=== PATIENT | female | born 1950 | race Caucasian/White ===

== ENCOUNTER 2017-12-05 18:34 | Inpatient (IN) | payer MEDICARE, MEDICAID ==
[~2017-12-05] VITALS: Ht 152.4 cm; Wt 40.0 kg
[~2017-12-05 18:34] MED LIST: CLOP75TA15 PO; DULO60CA64 PO; FLO110IN INH; HYDR-569 PO; LISI10TA4 PO; OXYB10TA4 PO; PANT-47 PO; PHEN100C4 PO; POLY17PO10 PO; [UNRECOGNIZED DRUG - CODE] PO
[2017-12-05] MEDS ORDERED: normal saline 1000ML IV soln IVB ONE (18:45)
[2017-12-05 19:05] LABS: BASOPHILS % (AUTO) 0.2 % (0-1); EOSINOPHILS % (AUTO) 0.2 % (0-6); HEMATOCRIT 23.4 % (35.0-45.0); HEMOGLOBIN 7.9 g/dl (12.0-16.0); LYMPHOCYTES # (AUTO) 1.5 X10'3 (1.1-4.8); LYMPHOCYTES % (AUTO) 9.4 % (21-51); MEAN CORPUSCULAR HEMOGLOBIN 32.9 PG (27.0-31.0); MEAN CORPUSCULAR HGB CONC 33.9 % (33.0-36.5); MEAN CORPUSCULAR VOLUME 97.2 FL (78-98); MEAN PLATELET VOLUME 7.4 FL (7.4-10.4); MONOCYTES # (AUTO) 1.2 X10'3 (0-0.9); MONOCYTES % (AUTO) 7.6 % (2-12); NEUTROPHILS # (AUTO) 12.8 X10'3 (1.8-7.7); NEUTROPHILS % (AUTO) 82.6 % (42-75); PLATELET COUNT 382 X10'3 (140-440); WHITE BLOOD COUNT 15.5 X10'3 (4.5-11.0)
[2017-12-05 19:32] LABS: ALANINE AMINOTRANSFERASE 26 U/L (12-78); ALBUMIN/GLOBULIN RATIO 0.4 (1.1-1.5); ANION GAP 14 (8-16); ASPARTATE AMINO TRANSFERASE 43 U/L (10-37); BILIRUBIN,TOTAL 0.2 MG/DL (0.1-1.0); BLOOD UREA NITROGEN 45 MG/DL (7-18); BUN/CREATININE RATIO 23.1 (6.6-38.0); CALCIUM 8.9 MG/DL (8.5-10.1); CHLORIDE 104 MMOL/L (99-107); CREATININE 1.95 MG/DL (0.40-0.90); MAGNESIUM 1.9 MG/DL (1.5-2.4); POTASSIUM 4.2 MMOL/L (3.5-5.1); SODIUM 141 MMOL/L (135-145); TOTAL CARBON DIOXIDE 23.3 MMOL/L (24-32); TOTAL PROTEIN 6.8 G/DL (6.4-8.2); eGFR 26 ML/MIN
[2017-12-05 19:39] LABS: GLUCOSE 125 MG/DL (70-104)
[2017-12-05 19:40] LABS: ALKALINE PHOSPHATASE 114 IU/L (46-116)
[2017-12-05] MEDS ORDERED: MELO-102 PO (19:46)
[2017-12-05 21:04] LABS: CLARITY,URINE SLIGHTLY CLOUDY (Clear); COLOR,URINE YELLOW (Yellow); GLUCOSE, URINE NEGATIVE (Neg); KETONES,URINE TRACE mg/dl (Neg); LEUKOCYTE ESTERASE ,URINE NEGATIVE (Neg); NITRITES, URINE NEGATIVE (Neg); OCCULT BLOOD,URINE LARGE (Neg); PH,URINE 5.5 (4.8-8.0); PROTEIN,URINE 30 mg/dl (Neg); UROBILINOGEN,URINE 0.2 E.U/dL (0.2-1.0)
[2017-12-05] MEDS ORDERED: methylPREDNISolone sod succ 125mg/2ml vial IV ONE (21:05)
[2017-12-05 21:06] LABS: UA COLLECTION TYPE STRAIGHT CATH
[2017-12-05 21:10] LABS: BACTERIA,URINE FEW /HPF (Neg); SQUAMOUS EPITHELIAL CELL,UR MANY /LPF (FEW); WBC,URINE 0-4 /HPF (0-4)
[2017-12-05 21:11] LABS: URIC ACID CRYSTALS 1+ /HPF (NEGATIVE)
[2017-12-05 21:12] LABS: MUCUS STRANDS FEW /LPF (Neg)
[2017-12-05] MEDS ORDERED: morphine 4 MG/ML inj SYRINge IV PRN ×2 (21:35)
[2017-12-05] MEDS ORDERED: HYDROcodone/acetaminophen 5mg/325mg tablet PO PRN (21:35)
[2017-12-05] MEDS ORDERED: mag hydrox/Alum hydrox/simeth 30ml oral suspension PO PRN (21:35)
[2017-12-05] MEDS ORDERED: magnesium hydroxide 30ml (MOM) UD suspension PO PRN (21:35)
[2017-12-05] MEDS ORDERED: metoclopramide 5 mg/ml inj IV PRN (21:35)
[2017-12-05] MEDS ORDERED: diphenhydrAMINE 25mg capsule PO PRN (21:35)
[2017-12-05] MEDS ORDERED: ondansetron/PF 4mg/2ml inj IV PRN (21:35)
[2017-12-05] MEDS ORDERED: HYDROmorphone inj. 0.5 MG/0.5 ML DISP.SYRIN IV PRN ×2 (21:35)
[2017-12-05] MEDS ORDERED: diphenhydrAMINE 50 mg/ml inj IV PRN (21:35)
[2017-12-05] MEDS ORDERED: bisacodyl 10mg suppository rectal RC PRN (21:35)
[2017-12-05] MEDS ORDERED: acetaminophen 650mg rectal suppository RC PRN (21:35)
[2017-12-05 21:39] LABS: LIPASE 162 U/L (73-393); PHENYTOIN (DILANTIN) 6.3 UG/ML (10.0-20.0); PHOSPHORUS 3.5 MG/DL (2.3-4.5)
[2017-12-05 22:04] LABS: HEMOGLOBIN A1C 5.9 % (4.5-6.2)
[2017-12-05 22:11] LABS: ABG BASE EXCESS -4.3 mmol/L (-2.0-3.0); ABG HCO3 20.5 mmol/L (22.0-26.0); ABG OXYGEN SATURATION 95.7 % (95-98); ABG PCO2 (T) 35.5 mmHg (32.0-45.0); ABG PH (T) 7.377 (7.350-7.450); ABG PO2 (T) 89.9 mmHg (83-108); FCOHb 2.5 % (0.5-1.5); FMetHb 0.3 % (0.3-1.12); PATIENT TEMPERATURE 36.7; RESPIRATORY RATE (OBSERVED) 16 b/min; TOTAL HEMOGLOBIN 7.8 G/dl (12.0-16.0)
[2017-12-05 23:00] VITALS: BP 120/65
[2017-12-05] MEDS: normal saline 1000ml 1,000 ML IV SCH (23:13)
[2017-12-06 03:00] VITALS: BP 100/53
[2017-12-06 06:00] VITALS: BP 104/54
[2017-12-06 07:32] LABS: BASOPHILS % (AUTO) 0.1 % (0-1); EOSINOPHILS % (AUTO) 0 % (0-6); HEMATOCRIT 25.9 % (35.0-45.0); HEMOGLOBIN 8.5 g/dl (12.0-16.0); LYMPHOCYTES # (AUTO) 0.6 X10'3 (1.1-4.8); LYMPHOCYTES % (AUTO) 5.1 % (21-51); MEAN CORPUSCULAR HEMOGLOBIN 32.6 PG (27.0-31.0); MEAN CORPUSCULAR VOLUME 98.7 FL (78-98); MEAN PLATELET VOLUME 7.5 FL (7.4-10.4); MONOCYTES # (AUTO) 0.4 X10'3 (0-0.9); MONOCYTES % (AUTO) 3.5 % (2-12); NEUTROPHILS # (AUTO) 11.4 X10'3 (1.8-7.7); NEUTROPHILS % (AUTO) 91.3 % (42-75); PLATELET COUNT 420 X10'3 (140-440); RED BLOOD COUNT 2.62 X10'6 (4.20-5.60); RED CELL DISTRIBUTION WIDTH 13.8 % (11.5-14.5); WHITE BLOOD COUNT 12.5 X10'3 (4.5-11.0)
[2017-12-06] MEDS: docusate sod 100mg capsule PO SCH ×2 (07:33→19:03)
[2017-12-06] MEDS: pantoprazole 40mg Tablet.DR PO SCH (07:33)
[2017-12-06] MEDS: oxybutynin 5mg tablet PO SCH ×2 (07:34→19:03)
[2017-12-06] MEDS: duloxetine 30mg CAPSULE.DR PO SCH (07:34)
[2017-12-06] MEDS: nicotine 21mg patch - 24 hr TD SCH (07:36)
[2017-12-06] MEDS: levoFLOXACIN-Levaquin 500mg/D5 100 ML IV SCH (07:37)
[2017-12-06 07:46] LABS: ALANINE AMINOTRANSFERASE 21 U/L (12-78); ALBUMIN 1.7 G/DL (3.4-5.0); ALBUMIN/GLOBULIN RATIO 0.4 (1.1-1.5); ALKALINE PHOSPHATASE 102 IU/L (46-116); ANION GAP 10 (8-16); ASPARTATE AMINO TRANSFERASE 21 U/L (10-37); BILIRUBIN,TOTAL 0.1 MG/DL (0.1-1.0); BLOOD UREA NITROGEN 43 MG/DL (7-18); BUN/CREATININE RATIO 29.3 (6.6-38.0); CALCIUM 8.3 MG/DL (8.5-10.1); CHLORIDE 111 MMOL/L (99-107); CREATININE 1.47 MG/DL (0.40-0.90); POTASSIUM 4.3 MMOL/L (3.5-5.1); SODIUM 145 MMOL/L (135-145); TOTAL CARBON DIOXIDE 24.4 MMOL/L (24-32); TOTAL PROTEIN 6.1 G/DL (6.4-8.2); eGFR 36 ML/MIN
[2017-12-06 07:49] LABS: CHOL/HDL RATIO 4.8 (0.00-4.99); CHOLESTEROL 116 MG/DL (0-200); HDL CHOLESTEROL 24 MG/DL (35-60); LDL CHOLESTEROL 73 MG/DL (50-100); TRIGLYCERIDES 86 MG/DL (20-135)
[2017-12-06 07:50] LABS: GLUCOSE 129 MG/DL (70-104)
[2017-12-06] MEDS: phenytoin sod ER 100mg capsule PO SCH (08:02)
[2017-12-06] MEDS: HYDROcodone/acetaminophen 10/325mg tab PO PRN ×2 (08:06→12:13)
[2017-12-06] MEDS: normal saline 1000ml 1,000 ML IV SCH ×2 (08:09→17:44)
[2017-12-06 15:00] VITALS: BP 118/59
[2017-12-06 19:00] VITALS: BP 137/67
[2017-12-06] MEDS: temazepam 15mg capsule PO PRN (22:17)
[2017-12-06 23:00] VITALS: BP 120/80
[2017-12-07] MEDS: normal saline 1000ml 1,000 ML IV SCH ×3 (02:54→23:31)
[2017-12-07 03:00] VITALS: BP 149/79
[2017-12-07 05:54] LABS: BASOPHILS % (AUTO) 0 % (0-1); EOSINOPHILS % (AUTO) 0.1 % (0-6); HEMATOCRIT 25.1 % (35.0-45.0); HEMOGLOBIN 8.3 g/dl (12.0-16.0); LYMPHOCYTES % (AUTO) 5.7 % (21-51); MEAN CORPUSCULAR HEMOGLOBIN 32.3 PG (27.0-31.0); MEAN CORPUSCULAR HGB CONC 33.1 % (33.0-36.5); MEAN CORPUSCULAR VOLUME 97.8 FL (78-98); MEAN PLATELET VOLUME 7.4 FL (7.4-10.4); MONOCYTES # (AUTO) 1.4 X10'3 (0-0.9); MONOCYTES % (AUTO) 7.9 % (2-12); NEUTROPHILS # (AUTO) 15.4 X10'3 (1.8-7.7); NEUTROPHILS % (AUTO) 86.3 % (42-75); PLATELET COUNT 434 X10'3 (140-440); RED BLOOD COUNT 2.57 X10'6 (4.20-5.60); RED CELL DISTRIBUTION WIDTH 14.1 % (11.5-14.5); WHITE BLOOD COUNT 17.8 X10'3 (4.5-11.0)
[2017-12-07 07:13] VITALS: BP 153/86
[2017-12-07 07:19] LABS: ALANINE AMINOTRANSFERASE 16 U/L (12-78); ALBUMIN 1.6 G/DL (3.4-5.0); ALBUMIN/GLOBULIN RATIO 0.4 (1.1-1.5); ALKALINE PHOSPHATASE 111 IU/L (46-116); ANION GAP 11 (8-16); ASPARTATE AMINO TRANSFERASE 22 U/L (10-37); BILIRUBIN,TOTAL 0.2 MG/DL (0.1-1.0); BLOOD UREA NITROGEN 29 MG/DL (7-18); BUN/CREATININE RATIO 22.8 (6.6-38.0); CALCIUM 8.3 MG/DL (8.5-10.1); CHLORIDE 109 MMOL/L (99-107); CREATININE 1.27 MG/DL (0.40-0.90); POTASSIUM 4.3 MMOL/L (3.5-5.1); SODIUM 140 MMOL/L (135-145); TOTAL CARBON DIOXIDE 20.4 MMOL/L (24-32); TOTAL PROTEIN 5.8 G/DL (6.4-8.2); eGFR 42 ML/MIN
[2017-12-07 07:24] LABS: GLUCOSE 122 MG/DL (70-104)
[2017-12-07] MEDS: phenytoin sod ER 100mg capsule PO SCH (07:32)
[2017-12-07] MEDS: nicotine 21mg patch - 24 hr TD SCH (07:32)
[2017-12-07] MEDS: pantoprazole 40mg Tablet.DR PO SCH (07:32)
[2017-12-07] MEDS: duloxetine 30mg CAPSULE.DR PO SCH (07:33)
[2017-12-07] MEDS: oxybutynin 5mg tablet PO SCH ×2 (07:33→20:27)
[2017-12-07] MEDS: docusate sod 100mg capsule PO SCH ×2 (07:33→20:27)
[2017-12-07 11:00] VITALS: BP 153/87
[2017-12-07] MEDS: HYDROcodone/acetaminophen 10/325mg tab PO PRN (12:25)
[2017-12-07 15:00] VITALS: BP 164/81
[2017-12-07 18:00] VITALS: BP 157/79
[2017-12-07] MEDS: lactobacillus rhamnosus 10,000 MMU CELLS/CAPSULE PO SCH (20:27)
[2017-12-07] MEDS: temazepam 15mg capsule PO PRN (20:28)
[2017-12-07 22:00] VITALS: BP 154/87
[2017-12-08 02:00] VITALS: BP 142/88
[2017-12-08 05:49] LABS: BASOPHILS % (AUTO) 0.1 % (0-1); EOSINOPHILS # (AUTO) 0.2 X10'3 (0-0.9); HEMATOCRIT 25.4 % (35.0-45.0); HEMOGLOBIN 8.5 g/dl (12.0-16.0); LYMPHOCYTES # (AUTO) 1.1 X10'3 (1.1-4.8); LYMPHOCYTES % (AUTO) 6.2 % (21-51); MEAN CORPUSCULAR HEMOGLOBIN 32.3 PG (27.0-31.0); MEAN CORPUSCULAR HGB CONC 33.4 % (33.0-36.5); MEAN CORPUSCULAR VOLUME 96.9 FL (78-98); MEAN PLATELET VOLUME 7.4 FL (7.4-10.4); MONOCYTES # (AUTO) 1.3 X10'3 (0-0.9); MONOCYTES % (AUTO) 7.4 % (2-12); NEUTROPHILS # (AUTO) 15.2 X10'3 (1.8-7.7); NEUTROPHILS % (AUTO) 85.3 % (42-75); PLATELET COUNT 446 X10'3 (140-440); RED BLOOD COUNT 2.62 X10'6 (4.20-5.60); RED CELL DISTRIBUTION WIDTH 14.1 % (11.5-14.5); WHITE BLOOD COUNT 17.9 X10'3 (4.5-11.0)
[2017-12-08 06:27] LABS: ALANINE AMINOTRANSFERASE 16 U/L (12-78); ALBUMIN 1.7 G/DL (3.4-5.0); ALBUMIN/GLOBULIN RATIO 0.4 (1.1-1.5); ALKALINE PHOSPHATASE 124 IU/L (46-116); ANION GAP 11 (8-16); ASPARTATE AMINO TRANSFERASE 16 U/L (10-37); BILIRUBIN,TOTAL 0.3 MG/DL (0.1-1.0); BLOOD UREA NITROGEN 16 MG/DL (7-18); BUN/CREATININE RATIO 16.7 (6.6-38.0); CALCIUM 8.6 MG/DL (8.5-10.1); CHLORIDE 105 MMOL/L (99-107); CREATININE 0.96 MG/DL (0.40-0.90); POTASSIUM 3.8 MMOL/L (3.5-5.1); SODIUM 137 MMOL/L (135-145); TOTAL PROTEIN 5.9 G/DL (6.4-8.2); eGFR 58 ML/MIN
[2017-12-08 06:34] LABS: GLUCOSE 111 MG/DL (70-104)
[2017-12-08 06:41] VITALS: BP 171/96
[2017-12-08] MEDS: levoFLOXACIN-Levaquin 500mg/D5 100 ML IV SCH (07:34)
[2017-12-08] MEDS: lisinopril 10 MG tablet PO SCH (07:35)
[2017-12-08] MEDS: nicotine 21mg patch - 24 hr TD SCH (07:35)
[2017-12-08] MEDS: duloxetine 30mg CAPSULE.DR PO SCH (07:35)
[2017-12-08] MEDS: oxybutynin 5mg tablet PO SCH ×2 (07:36→20:28)
[2017-12-08] MEDS: lactobacillus rhamnosus 10,000 MMU CELLS/CAPSULE PO SCH ×2 (07:36→20:28)
[2017-12-08] MEDS: pantoprazole 40mg Tablet.DR PO SCH (07:36)
[2017-12-08] MEDS: gabapentin 300mg capsule PO SCH ×3 (07:37→16:03)
[2017-12-08] MEDS: phenytoin sod ER 100mg capsule PO SCH (07:38)
[2017-12-08] MEDS: docusate sod 100mg capsule PO SCH ×2 (07:38→20:28)
[2017-12-08] MEDS: normal saline 1000ml 1,000 ML IV SCH ×2 (07:40→18:09)
[2017-12-08] MEDS: HYDROcodone/acetaminophen 10/325mg tab PO PRN ×2 (09:03→16:04)
[2017-12-08 11:00] VITALS: BP 125/75
[2017-12-08 15:00] VITALS: BP 107/72
[2017-12-08] MEDS ORDERED: baclofen 10mg tablet PO PRN (16:55)
[2017-12-08 18:00] VITALS: BP 123/79
[2017-12-08] MEDS: temazepam 15mg capsule PO PRN (20:28)
[2017-12-08 22:00] VITALS: BP 118/58
[2017-12-09 02:00] VITALS: BP 168/89
[2017-12-09] MEDS: normal saline 1000ml 1,000 ML IV SCH ×2 (05:36→16:34)
[2017-12-09 06:00] VITALS: BP 145/85
[2017-12-09] MEDS: acetaminophen 325mg tablet PO PRN (06:01)
[2017-12-09 06:11] LABS: BASOPHILS % (AUTO) 0 % (0-1); EOSINOPHILS % (AUTO) 0.1 % (0-6); HEMATOCRIT 25.2 % (35.0-45.0); HEMOGLOBIN 8.4 g/dl (12.0-16.0); LYMPHOCYTES # (AUTO) 0.9 X10'3 (1.1-4.8); LYMPHOCYTES % (AUTO) 4.9 % (21-51); MEAN CORPUSCULAR HEMOGLOBIN 32.3 PG (27.0-31.0); MEAN CORPUSCULAR HGB CONC 33.3 % (33.0-36.5); MEAN CORPUSCULAR VOLUME 97.1 FL (78-98); MEAN PLATELET VOLUME 7.4 FL (7.4-10.4); MONOCYTES # (AUTO) 1.1 X10'3 (0-0.9); MONOCYTES % (AUTO) 5.8 % (2-12); NEUTROPHILS # (AUTO) 16.9 X10'3 (1.8-7.7); NEUTROPHILS % (AUTO) 89.2 % (42-75); PLATELET COUNT 451 X10'3 (140-440); RED BLOOD COUNT 2.59 X10'6 (4.20-5.60); RED CELL DISTRIBUTION WIDTH 14.3 % (11.5-14.5); WHITE BLOOD COUNT 18.9 X10'3 (4.5-11.0)
[2017-12-09 06:38] LABS: ALANINE AMINOTRANSFERASE 16 U/L (12-78); ALBUMIN 1.5 G/DL (3.4-5.0); ALBUMIN/GLOBULIN RATIO 0.4 (1.1-1.5); ALKALINE PHOSPHATASE 110 IU/L (46-116); ANION GAP 11 (8-16); ASPARTATE AMINO TRANSFERASE 17 U/L (10-37); BILIRUBIN,TOTAL 0.2 MG/DL (0.1-1.0); BLOOD UREA NITROGEN 16 MG/DL (7-18); BUN/CREATININE RATIO 13.4 (6.6-38.0); CALCIUM 8.2 MG/DL (8.5-10.1); CHLORIDE 107 MMOL/L (99-107); CREATININE 1.19 MG/DL (0.40-0.90); GLUCOSE 137 MG/DL (70-104); SODIUM 139 MMOL/L (135-145); TOTAL CARBON DIOXIDE 20.8 MMOL/L (24-32); TOTAL PROTEIN 5.7 G/DL (6.4-8.2); eGFR 45 ML/MIN
[2017-12-09] MEDS: docusate sod 100mg capsule PO SCH ×2 (08:00→19:22)
[2017-12-09] MEDS: duloxetine 30mg CAPSULE.DR PO SCH (08:41)
[2017-12-09] MEDS: levoFLOXACIN-Levaquin 250mg/D5 50 ML IV SCH (08:41)
[2017-12-09] MEDS: oxybutynin 5mg tablet PO SCH ×2 (08:41→19:22)
[2017-12-09] MEDS: phenytoin sod ER 100mg capsule PO SCH (08:41)
[2017-12-09] MEDS: lactobacillus rhamnosus 10,000 MMU CELLS/CAPSULE PO SCH ×2 (08:41→19:22)
[2017-12-09] MEDS: nicotine 21mg patch - 24 hr TD SCH (08:42)
[2017-12-09] MEDS: gabapentin 300mg capsule PO SCH ×4 (08:42→23:58)
[2017-12-09] MEDS: lisinopril 10 MG tablet PO SCH (08:42)
[2017-12-09] MEDS: pantoprazole 40mg Tablet.DR PO SCH (08:42)
[2017-12-09 11:00] VITALS: BP 112/75
[2017-12-09 15:00] VITALS: BP 145/81
[2017-12-09] MEDS: HYDROcodone/acetaminophen 10/325mg tab PO PRN (16:36)
[2017-12-09 18:19] LABS: CLARITY,URINE Clear (Clear); COLOR,URINE Yellow (Yellow); GLUCOSE, URINE 100 mg/dl (Neg); KETONES,URINE Negative (Neg); LEUKOCYTE ESTERASE ,URINE Negative (Neg); NITRITES, URINE Negative (Neg); OCCULT BLOOD,URINE Trace (Neg); PROTEIN,URINE 30 mg/dl (Neg); UROBILINOGEN,URINE 0.2 E.U/dL (0.2-1.0)
[2017-12-09 18:21] LABS: UA COLLECTION TYPE OTHER
[2017-12-09 18:28] LABS: RBC,URINE 0-2 /HPF (0-2); WBC,URINE NONE SEEN /HPF (0-4)
[2017-12-09 18:29] LABS: BACTERIA,URINE FEW /HPF (Neg); SQUAMOUS EPITHELIAL CELL,UR FEW /LPF (FEW); YEAST MANY /HPF (NEGATIVE)
[2017-12-09 19:00] VITALS: BP 132/73
[2017-12-09] MEDS: temazepam 15mg capsule PO PRN (19:59)
[2017-12-09 23:00] VITALS: BP 146/80
[2017-12-10] MEDS: acetaminophen 325mg tablet PO PRN (02:54)
[2017-12-10 03:00] VITALS: BP 147/77
[2017-12-10 05:25] LABS: BASOPHILS % (AUTO) 0.2 % (0-1); EOSINOPHILS # (AUTO) 0.1 X10'3 (0-0.9); EOSINOPHILS % (AUTO) 0.3 % (0-6); HEMATOCRIT 24.2 % (35.0-45.0); LYMPHOCYTES # (AUTO) 1.2 X10'3 (1.1-4.8); LYMPHOCYTES % (AUTO) 7.6 % (21-51); MEAN CORPUSCULAR HEMOGLOBIN 31.8 PG (27.0-31.0); MEAN CORPUSCULAR VOLUME 96.6 FL (78-98); MEAN PLATELET VOLUME 7.2 FL (7.4-10.4); MONOCYTES # (AUTO) 1.2 X10'3 (0-0.9); MONOCYTES % (AUTO) 7.1 % (2-12); NEUTROPHILS # (AUTO) 13.8 X10'3 (1.8-7.7); NEUTROPHILS % (AUTO) 84.8 % (42-75); PLATELET COUNT 447 X10'3 (140-440); RED BLOOD COUNT 2.51 X10'6 (4.20-5.60); RED CELL DISTRIBUTION WIDTH 14.1 % (11.5-14.5); WHITE BLOOD COUNT 16.2 X10'3 (4.5-11.0)
[2017-12-10 05:44] LABS: ALANINE AMINOTRANSFERASE 14 U/L (12-78); ALBUMIN 1.4 G/DL (3.4-5.0); ALBUMIN/GLOBULIN RATIO 0.3 (1.1-1.5); ALKALINE PHOSPHATASE 108 IU/L (46-116); ANION GAP 9 (8-16); ASPARTATE AMINO TRANSFERASE 23 U/L (10-37); BILIRUBIN,TOTAL 0.2 MG/DL (0.1-1.0); BLOOD UREA NITROGEN 15 MG/DL (7-18); BUN/CREATININE RATIO 14.7 (6.6-38.0); CALCIUM 8.2 MG/DL (8.5-10.1); CHLORIDE 107 MMOL/L (99-107); CREATININE 1.02 MG/DL (0.40-0.90); GLUCOSE 104 MG/DL (70-104); POTASSIUM 3.5 MMOL/L (3.5-5.1); SODIUM 139 MMOL/L (135-145); TOTAL CARBON DIOXIDE 23.5 MMOL/L (24-32); TOTAL PROTEIN 5.5 G/DL (6.4-8.2); eGFR 54 ML/MIN
[2017-12-10 06:00] VITALS: BP 131/77
[2017-12-10] MEDS: normal saline 1000ml 1,000 ML IV SCH ×3 (07:37→20:57)
[2017-12-10] MEDS: duloxetine 30mg CAPSULE.DR PO SCH (07:37)
[2017-12-10] MEDS: gabapentin 300mg capsule PO SCH ×3 (07:37→23:00)
[2017-12-10] MEDS: pantoprazole 40mg Tablet.DR PO SCH (07:37)
[2017-12-10] MEDS: lactobacillus rhamnosus 10,000 MMU CELLS/CAPSULE PO SCH ×2 (07:37→20:56)
[2017-12-10] MEDS: levoFLOXACIN-Levaquin 250mg/D5 50 ML IV SCH (07:38)
[2017-12-10] MEDS: lisinopril 10 MG tablet PO SCH (07:38)
[2017-12-10] MEDS: docusate sod 100mg capsule PO SCH ×2 (07:38→20:56)
[2017-12-10] MEDS: oxybutynin 5mg tablet PO SCH ×2 (07:38→20:56)
[2017-12-10] MEDS: phenytoin sod ER 100mg capsule PO SCH (07:38)
[2017-12-10] MEDS: nicotine 21mg patch - 24 hr TD SCH (07:41)
[2017-12-10 11:00] VITALS: BP 124/73
[2017-12-10] MEDS: HYDROcodone/acetaminophen 10/325mg tab PO PRN ×2 (13:59→20:57)
[2017-12-10 15:00] VITALS: BP 134/69
[2017-12-10 19:00] VITALS: BP 155/80
[2017-12-10 23:00] VITALS: BP 140/70
[2017-12-11 03:00] VITALS: BP 141/81
[2017-12-11 06:00] VITALS: BP 152/85
[2017-12-11] MEDS: HYDROcodone/acetaminophen 10/325mg tab PO PRN (09:24)
[2017-12-11] MEDS: nicotine 21mg patch - 24 hr TD SCH (09:24)
[2017-12-11] MEDS: duloxetine 30mg CAPSULE.DR PO SCH (09:25)
[2017-12-11] MEDS: pantoprazole 40mg Tablet.DR PO SCH (09:25)
[2017-12-11] MEDS: phenytoin sod ER 100mg capsule PO SCH (09:25)
[2017-12-11] MEDS: lactobacillus rhamnosus 10,000 MMU CELLS/CAPSULE PO SCH (09:26)
[2017-12-11] MEDS: oxybutynin 5mg tablet PO SCH (09:26)
[2017-12-11] MEDS: gabapentin 300mg capsule PO SCH (09:26)
[2017-12-11] MEDS: lisinopril 10 MG tablet PO SCH (09:26)
[2017-12-11] MEDS: docusate sod 100mg capsule PO SCH (09:27)
[2017-12-11] MEDS: levoFLOXACIN-Levaquin 250mg/D5 50 ML IV SCH (09:27)
== END 2017-12-11 15:30 | DRG 180 ==
LOC: ER 18:34 → ED HOLD 21:31 → PCU 3S 22:52
PROVIDERS: ADMIT Family Medicine; ATTEND Family Medicine
DX: C34.11 Malignant neoplasm of upper lobe, right bronchus or lung (principal); J18.8 Other pneumonia, unspecified organism; E43 Unspecified severe protein-calorie malnutrition; J44.1 Chronic obstructive pulmonary disease with (acute) exacerbation; J44.0 Chronic obstructive pulmonary disease with (acute) lower respiratory infection; Z68.1 Body mass index [BMI] 19.9 or less, adult; D72.829 Elevated white blood cell count, unspecified; E86.0 Dehydration; R62.7 Adult failure to thrive; D63.8 Anemia in other chronic diseases classified elsewhere; Z53.20 Procedure and treatment not carried out because of patient's decision for unspecified reasons; F17.210 Nicotine dependence, cigarettes, uncomplicated; Z66 Do not resuscitate; Z79.02 Long term (current) use of antithrombotics/antiplatelets; Z79.899 Other long term (current) drug therapy; Z86.73 Personal history of transient ischemic attack (TIA), and cerebral infarction without residual deficits
CPT/HCPCS: 36415; 36600; 71045; 71250; 74176; 80053; 80061; 80185; 81001; 82803; 83036; 83605; 83690; 83735; 83880; 84100; 84145; 84443; 84484; 85018; 85025; 87040; 87070; 93005; 94760; 96361; 96374; 97162; 97530; 99285; A4353; A6212; J1956; J2405; J2930; J7030; Q0163